=== PATIENT | male | born 1965 | race Two or more races ===

== ENCOUNTER → 2021-01-30 09:09 | Outpatient (BNVA) | payer OTHER, SELFPAY | PROVIDERS: PCP Internal Medicine; Visit Provider Student in an Organized Health Care Education/Training Program | DX: I73.00 Raynaud's syndrome without gangrene (principal); L40.50 Arthropathic psoriasis, unspecified; I10 Essential (primary) hypertension | CPT/HCPCS: 99202 ==

== ENCOUNTER 2021-02-19 08:15 | Outpatient (REF) | payer OTHER, SELFPAY ==
--- NOTE | ~2021-02-19 | XR_ITS ---
EXAMINATION: XR HAND, BILATERAL CLINICAL INFORMATION: Psoriatic arthropathy COMPARISON: None TECHNIQUE: 3 views of each hand FINDINGS: There are degenerative changes of the right 2nd and 3rd MCP joints with narrowing, degenerative cysts, and small osteophytes. Mild narrowing of the 4th and 5th DIP joints bilaterally, likely degenerative. No active erosions or suspicious soft tissue calcifications. XR/XR hand RT min 3V IMPRESSION: No evidence of an active inflammatory arthropathy. Degenerative changes as described, most prominent at the right 2nd and 3rd MCP joints. No acute abnormality.
--- NOTE | ~2021-02-19 | XR_ITS ---
EXAMINATION: XR HAND, BILATERAL CLINICAL INFORMATION: Psoriatic arthropathy COMPARISON: None TECHNIQUE: 3 views of each hand FINDINGS: There are degenerative changes of the right 2nd and 3rd MCP joints with narrowing, degenerative cysts, and small osteophytes. Mild narrowing of the 4th and 5th DIP joints bilaterally, likely degenerative. No active erosions or suspicious soft tissue calcifications. XR/XR hand LT min 3V IMPRESSION: No evidence of an active inflammatory arthropathy. Degenerative changes as described, most prominent at the right 2nd and 3rd MCP joints. No acute abnormality.
[2021-02-19 09:39] LABS: MANUAL DIFF FLAG NO
[2021-02-19 09:58] LABS: Basophils Absolute Auto 0.1 X10*3/uL (0.0-0.2); Basophils Percent Auto 0.5 % (0-2); Eosinophils Absolute Auto 0.2 X10*3/uL (0.0-0.4); Hematocrit 42.1 % (42-52); Hemoglobin 13.6 g/dl (14.0-18.0); Imm Gran Abs Auto 0.02 X10*3/uL (0.00-0.03); Imm Gran Pct Auto 0.2 % (0.0-0.4); Lymphocytes Absolute Auto 2.4 X10*3/uL (1.2-4.9); Lymphocytes Percent Auto 23.7 % (20-40); Mean Corpuscular HGB Conc 32.3 g/dl (31.0-36.0); Mean Corpuscular Hemoglobin 26.6 pg (27.0-33.0); Mean Corpuscular Volume 82.4 fL (80-98); Mean Platelet Volume 10.9 fL (9.4-12.4); Monocytes Absolute Auto 0.7 X10*3/uL (0.1-1.2); Monocytes Percent Auto 6.5 % (2-11); Neutrophils Absolute Auto 6.7 X10*3/uL (2.0-8.3); Neutrophils Percent Auto 67.1 % (45-73); Platelet Count 217 X10*3/uL (160-400); Red Blood Count 5.11 X10*6/uL (4.60-5.80); Red Cell Distribution Width 13.7 % (11.0-16.0)
[2021-02-19 10:23] LABS: Alanine Aminotransferase 28 U/L (0-40); Albumin Level 4.6 g/dL (3.5-5.0); Alkaline Phosphatase 81 U/L (39-117); Anion Gap 12 (12-20); Aspartate Amino Transferase 21 U/L (5-37); Bilirubin Total 0.5 mg/dL (0.0-1.0); Blood Urea Nitrogen 12 mg/dL (9-16); C Reactive Protein 0.15 mg/dL (< or = 0.50); Calcium 9.4 mg/dL (8.4-10.2); Carbon Dioxide 28 mmol/L (22-29); Chloride 105 mmol/L (96-108); Estimated Glomerular Filt Rate > 60; Glucose Random 94 mg/dL (60-115); Sodium 141 mmol/L (135-145); Total Protein 7.5 g/dL (6.5-8.0)
[2021-02-19 10:32] LABS: Rheumatoid Factor < 15.0 IU/mL (<15.0)
[2021-02-19 10:44] LABS: Erythrocyte Sedimentation Rate 7 MM/HR (0-15); HBS Num1 1.41 mIU/mL (0-7.99); HBc Num1 0.05 S/CO (0.00-0.79); HBsAGNum1 0.21 S/CO (0.00-0.99); Hepatitis A Antibody IgM 0.16 Index (0-0.79); Hepatitis B Core Antibody Nonreactive (Nonreactive); Hepatitis B Surface Antigen Negative (Negative); ~Hepatitis A Antibody IgM Nonreactive (Nonreactive); ~Hepatitis B Surface Antibody NONREACTIVE (Nonreactive)
[2021-02-19 11:15] LABS: ~HepC Num1 0.11 S/CO (0.00-0.79); ~Hepatitis C Antibody Nonreactive (Nonreactive)
[2021-02-19 11:54] LABS: Glucose Urine UA NEG (NEG); Leukocyte Esterase Urine NEG (NEG); Nitrite Urine NEG (NEG); Specific Gravity - Urine 1.025 (1.005-1.025); Urine Blood NEG (NEG); Urine Ketones NEG (NEG); Urine Protein NEG (NEG-TRACE)
[2021-02-19 11:58] LABS: Appearance Urine HAZY; Color Urine YELLOW
[2021-02-19 12:02] LABS: Squamous Epithelial Cell Urine TRACE /LPF; WBC Urine 0 /HPF (0-4)
[2021-02-20 13:12] LABS: Scleroderma 70 Antibody <1.0 NEG AI (<1.0 NEG)
[2021-02-21 00:12] LABS: Anti Nuclear Antibody Pattern Nuclear, Nucleolar; Anti Nuclear Antibody Screen POSITIVE (NEGATIVE)
[2021-02-21 21:22] LABS: TS Negative Control Passed; TS Panel A 0; TS Panel B 0; TS Positive Control Passed; TSpotTB Negative (SeeBelow)
[2021-02-26 09:42] LABS: Cyclic Citrullinated Peptide <16 UNITS
== END 2021-02-19 08:16 | disposition home or self-care (01) ==
LOC: HO.LAB 08:15
PROVIDERS: Visit Provider Student in an Organized Health Care Education/Training Program
DX: I73.00 Raynaud's syndrome without gangrene (principal); L40.50 Arthropathic psoriasis, unspecified; L40.9 Psoriasis, unspecified; I10 Essential (primary) hypertension
CPT/HCPCS: 36415; 73130; 80053; 81001; 85025; 85652; 86038; 86039; 86140; 86200; 86235; 86431; 86481; 86704; 86706; 86709; 86803; 87340; 99212

== ENCOUNTER → 2021-03-06 14:21 | Outpatient (BNVA) | payer OTHER, SELFPAY | PROVIDERS: PCP Internal Medicine; Visit Provider Student in an Organized Health Care Education/Training Program | DX: I73.00 Raynaud's syndrome without gangrene (principal); L40.50 Arthropathic psoriasis, unspecified; L40.9 Psoriasis, unspecified; I10 Essential (primary) hypertension | CPT/HCPCS: 99212 ==

== ENCOUNTER 2021-03-06 14:38 | Emergency (ER) | payer OTHER, SELFPAY ==
[2021-03-06 14:42] VITALS: BP 184/105; PULSE 91; RESP 18; TEMP 36.6; O2SAT 99; BMI 37.5
[2021-03-06 18:00] VITALS: BP 182/110; PULSE 79; RESP 16; TEMP 36.8; O2SAT 96
--- NOTE | 2021-03-06 19:09 | ED_ITS ---
HPI - General Adult General Chief complaint: General Medical Stated complaint: high bp Time Seen by Provider: 03/06/21 19:09 Source: patient Mode of arrival: ambulatory Limitations: no limitations History of Present Illness HPI narrative: Patient history of hypertension on hydrochlorothiazide 12.5 mg daily sent from Rheumatology clinic for elevated blood pressure blood pressure was 184/105 patient was diagnosed with hypertension last month with family history of hypertension. Patient denies any chest pain no headache nausea no vomiting patient had labs done on 02/19 which were normal Related Data Previous Rx's Medication Instructions Recorded hydrochlorothiazide 12.5 mg tablet 12.5 mg PO DAILY #30 tab 01/30/21 lisinopril 20 mg PO DAILY #30 tab 03/06/21 Allergies Allergy/AdvReac Type Severity Reaction Status Date / Time amoxicillin Allergy Intermediate Rash Verified 03/06/21 14:30 Review of Systems Review of Systems: Yes all other systems are reviewed and are negative [facility] Past Medical History Medical History Asthma Psoriasis Psoriatic arthritis Raynauds disease Surgical History H/O hand surgery H/O hernia repair Family History Family History Mother Heart attack Asthma Brother Lung cancer Social History Social History Household Members: None Housing: House Alcohol intake: never Patient Tobacco Use Status: Never used Tobacco e-Cigarette/Vaping Use: Never Used Use of substances other than those prescribed or required for medical reasons: No Advance Directives: No Physical Exam Vital Signs: Vital Signs: Last Vital Signs Temp 98.2 F 03/06/21 18:00 Pulse 78 03/06/21 19:30 Resp 18 03/06/21 19:30 BP 196/112 H 03/06/21 19:30 Pulse Ox 96 03/06/21 18:00 Body Mass Index 37.5 Appearance: Alert. Oriented X3. No acute distress. Eyes: PERRLA, No Nystagmus ENT: Pharynx normal. Oral Mucosa moist Neck: Normal inspection. Neck supple. CVS: Normal heart rate and rhythm. Pulses normal. Respiratory: No respiratory distress. Equal air entry bilateral, no wheezing/rales/rhonchi Abdomen: Soft and nontender. Bowel sounds are present, no mass palpable, no CVA tenderness Skin: Skin warm and dry. Normal skin color. Normal skin turgor. Extremities: No lower extremity edema. No calf tenderness Neuro: Oriented X 3. No motor deficit. No sensory deficit.No cerebellar signs , cranial nerves II-XII intact Medical Decision Making MDM Narrative Medical decision making narrative: Patient with history of hypertension without any end-organ damage will add lisinopril along with hydrochlorothiazide and the regime advised to follow with PCP Discharge Plan Discharge Clinical Impression: Hypertension Qualifiers: Hypertension type: primary hypertension Qualified Code(s): I10 - Essential (primary) hypertension Patient Disposition: Home, Self-Care Instructions: Chronic Hypertension (ED) Additional Instructions: Decreased salt intake check blood pressure daily should be less than 140/90 take medication as prescribed along with hydrochlorothiazide and follow with PCP Prescriptions: New lisinopril 20 mg tablet 20 mg PO DAILY Qty: 30 RF: 0 No Action hydrochlorothiazide 12.5 mg tablet 12.5 mg PO DAILY Qty: 30 RF: 3 Interventions: ED Discharge Assessment Last Done: 03/06/21 19:33 Discharge Date/Time: 03/06/21 19:33
[2021-03-06 19:29] VITALS: BP 196/112; PULSE 78
[2021-03-06] MEDS: lisinopriL 20 MG TABLET PO (19:29)
[2021-03-06 19:30] VITALS: BP 196/112; PULSE 78; RESP 18
== END 2021-03-06 19:33 | disposition home or self-care (01) ==
PROVIDERS: Emergency Provider Internal Medicine
DX: I10 Essential (primary) hypertension (principal); Z79.899 Other long term (current) drug therapy
CPT/HCPCS: 99283; 99284